=== PATIENT | female | born 1965 | race Caucasian/White ===

== ENCOUNTER 2018-12-05 06:39 | Day surgery (SDC) | payer OTHER ==
[~2018-12-05] VITALS: Ht 157.5 cm; Wt 83.0 kg
[~2018-12-05 06:39] MED LIST: AMLO2.5T78 PO; BENAZEPRIL; GLIP5TAB13 PO; JANUMET; ZANTAC
[2018-12-05 07:25] VITALS: Ht 157.5 cm; Wt 83.0 kg
[2018-12-05 07:54] VITALS: BP 138/76; PULSE 63; RESP 15
[2018-12-05] MEDS ORDERED: LIDOCAINE 2% (SDV) 5 ML INJ ONE (07:58)
[2018-12-05] MEDS ORDERED: PROPOFOL 20 ML ONE (07:58)
[2018-12-05 09:05] VITALS: BP 147/65; PULSE 57; RESP 18
== END 2018-12-05 11:41 | disposition home or self-care (01) ==
LOC: GIL 06:39
PROVIDERS: ATTEND Internal Medicine Gastroenterology
DX: Z12.11 Encounter for screening for malignant neoplasm of colon (principal); D12.5 Benign neoplasm of sigmoid colon; K64.8 Other hemorrhoids; E11.9 Type 2 diabetes mellitus without complications; I10 Essential (primary) hypertension
CPT/HCPCS: 45380; 82962; 88305; Z7610